=== PATIENT | male | born 1970 | race Hispanic/Latino ===

== ENCOUNTER 2020-07-06 11:05 | Inpatient (IN) | payer SELFPAY ==
[~2020-07-06] VITALS: Ht 165.1 cm; Wt 90.7 kg
[2020-07-06] MEDS ORDERED: SODIUM CHLORIDE 0.9% 1000ML 1,000 ML IV STA (11:35)
[2020-07-06] MEDS ORDERED: MORPHINE SULFATE INJ 2 MG/ML SYR IV NR (11:45)
[2020-07-06] MEDS ORDERED: ONDANSETRON HCL INJ 2MG/ML 2ML 2 MG/ML VIAL IV NR (11:45)
[2020-07-06 11:48] LABS: BASOPHILS % 0.2 % (0.0-1.0); EOSINOPHILS % 0.1 % (0.0-6.0); HEMATOCRIT 49.3 % (38.2-49.6); HEMOGLOBIN 17.1 g/dL (14.0-18.0); LYMPHOCYTES # (AUTO) 1.8 (1.0-3.2); LYMPHOCYTES % 11.2 % (18.0-39.1); MEAN CORPUSCULAR HEMOGLOBIN 31.2 pg (28-32); MEAN CORPUSCULAR HGB CONC 34.7 g/dL (31-35); MONOCYTES # (AUTO) 1.8 (0.2-0.8); MONOCYTES % 11.2 % (4.4-11.3); NEUTROPHILS # (AUTO) 12.3 (2.1-6.9); NEUTROPHILS % 76.7 % (38.7-80.0); PLATELET COUNT 205 x10e3/uL (140-360); RED BLOOD COUNT 5.48 x10e6/uL (4.3-5.7); RED CELL DISTRIBUTION WIDTH 12.6 % (11.7-14.4)
[2020-07-06] MEDS ORDERED: DIATRIZOATE MEGL/DIATRIZOA SOD 30 ML BTL PO ONE (11:51)
[2020-07-06 12:00] LABS: PARTIAL THROMBOPLASTIN TIME 25.7 seconds (23.8-35.5)
[2020-07-06 12:03] LABS: ALANINE AMINOTRANSFERASE 15 IU/L (0-55); ALBUMIN/GLOBULIN RATIO 1.1 (0.8-2.0); ALKALINE PHOSPHATASE 63 IU/L (40-150); BLOOD UREA NITROGEN 13 mg/dL (7-26); BUN/CREATININE RATIO 16 (6-25); CARBON DIOXIDE 22 mmol/L (22-29); CHLORIDE 102 mmol/L (98-107); CREATINE KINASE 71 IU/L (30-200); CREATININE, SERUM 0.83 mg/dL (0.72-1.25); EST GLOMERULAR FILTRATION RATE > 60 ML/MIN (60-); GLUCOSE 153 mg/dL (74-118); LIPASE 9 U/L (8-78); MAGNESIUM 1.9 MG/DL (1.3-2.1); SODIUM 135 mmol/L (136-145)
[2020-07-06 12:12] LABS: INR 1.04; PROTHROMBIN TIME 14.3 seconds (11.9-14.5)
[2020-07-06] MEDS ORDERED: ROCURONIUM BROMIDE 10 MG/ML 5ML VIAL IV ONE (12:14)
[2020-07-06] MEDS ORDERED: DEXAMETHASONE SOD PHOS INJ 4 MG/ML VIAL ONE (12:14)
[2020-07-06] MEDS ORDERED: LIDOCAINE HCL 2% LOCAL INJ 5 ML SDV VIAL INJ ONE (12:14)
[2020-07-06] MEDS ORDERED: GLYCOPYRROLATE INJ 0.2 MG/ML VIAL ONE (12:14)
[2020-07-06] MEDS ORDERED: CEFTRIAXONE SOD 1 GM VIAL ONE (12:14)
[2020-07-06] MEDS ORDERED: SEVOFLURANE INHAL SOLN 250 ML PEN BTL ONE (12:14)
[2020-07-06] MEDS ORDERED: NEOSTIGMINE 1 MG/ML 10ML VIAL ONE (12:14)
[2020-07-06] MEDS ORDERED: PROPOFOL IV EMULSION 10 MG/ML 20 ML VIAL ONE (12:14)
[2020-07-06] MEDS ORDERED: MIDAZOLAM HCL 2 MG/2 ML VIAL ONE (12:26)
[2020-07-06] MEDS ORDERED: FENTANYL CITRATE/PF 100MCG/2 ML INJ ONE ×2 (12:26→18:49)
[2020-07-06] MEDS ORDERED: IOPAMIDOL 370 MG/ML 200 ML INFUS..BTL INJ ONE (12:56)
[2020-07-06] MEDS ORDERED: SODIUM CHLORIDE 0.9% 50ML 50 ML ONE (12:56)
[2020-07-06] MEDS ORDERED: PIPER-TAZ 3.375 GM 50 ML IV SCH (13:15)
[2020-07-06] MEDS ORDERED: IBUPROFEN 800 MG/8 ML VIAL IV NR (13:45)
[2020-07-06] MEDS ORDERED: SODIUM CHLORIDE 0.9% 1000ML 1,000 ML IV SCH (14:30)
[2020-07-06] MEDS ORDERED: ONDANSETRON HCL INJ 2MG/ML 2ML 2 MG/ML VIAL IV PRN ×2 (14:30→18:30)
[2020-07-06] MEDS ORDERED: MORPHINE SULFATE INJ 2 MG/ML SYR IV PRN (14:30)
[2020-07-06] MEDS: SODIUM CHLORIDE 0.9% 1000ML 1,000 ML IV SCH ×3 (14:30→21:45)
[2020-07-06 15:15] LABS: CLARITY,URINE CLEAR (CLEAR); COLOR,URINE YELLOW (YELLOW); KETONES,URINE NEGATIVE (NEGATIVE); LEUKOCYTE ESTERASE ,URINE NEGATIVE (NEGATIVE); NITRITE,URINE NEGATIVE (NEGATIVE); PROTEIN,URINE DIPSTICK 1+ (NEGATIVE); URINE UROBILINOGEN 0.2 mg/dL (0.2 - 1)
[2020-07-06 15:27] LABS: BACTERIA,URINE RARE /HPF; EPITHELIAL CELLS,URINE RARE /LPF; RBC,URINE 0-5 /HPF (0-5); WBC,URINE (MAN) 0-5 /HPF (0-5)
[2020-07-06] MEDS ORDERED: BUPIVACAINE 0.25%/EPI 30ML SDV INJ ONE (15:48)
[2020-07-06 16:00] VITALS: BP 113/86
[2020-07-06] MEDS ORDERED: ACETAMINOPHEN 1000 MG/100 ML 100 ML IV ONE (17:01)
[2020-07-06] MEDS ORDERED: METRONIDAZOLE 500MG/NS 100ML 200 ML IV ONE (17:01)
[2020-07-06] MEDS ORDERED: HYDROGEN PEROXIDE 120 ML BTL ONE (18:08)
[2020-07-06] MEDS ORDERED: ACETAMINOPHEN 1000 MG/100 ML IV PRN (18:45)
[2020-07-06] MEDS: PANTOPRAZOLE 40 MG 10ML VIAL IV SCH (19:24)
[2020-07-06] MEDS: CEFTRIAXONE SOD 1 GM/NS 50 ML 50 ML IV SCH (19:24)
[2020-07-06] MEDS: DEXTROSE 5%/LACTATED RINGERS 1,000 ML IV SCH (19:24)
[2020-07-06 20:00] VITALS: BP 125/82
[2020-07-06 21:29] VITALS: BP 125/82
[2020-07-06] MEDS: PIPER-TAZ 3.375 GM 50 ML IV SCH (23:05)
[2020-07-06] MEDS: METRONIDAZOLE 500MG/NS 100ML 100 ML IV SCH (23:40)
[2020-07-07] VITALS (10 sets, daily range): BP systolic 126–143; BP diastolic 84–109
[2020-07-07] MEDS: SODIUM CHLORIDE 0.9% 1000ML 1,000 ML IV SCH ×3 (01:28→09:39)
[2020-07-07] MEDS: PIPER-TAZ 3.375 GM 50 ML IV SCH ×4 (05:09→23:35)
[2020-07-07] MEDS: DEXTROSE 5%/LACTATED RINGERS 1,000 ML IV SCH ×3 (05:09→17:31)
[2020-07-07 05:41] LABS: BASOPHILS % 0.1 % (0.0-1.0); HEMATOCRIT 43.6 % (38.2-49.6); HEMOGLOBIN 14.8 g/dL (14.0-18.0); LYMPHOCYTES # (AUTO) 1.1 (1.0-3.2); LYMPHOCYTES % 7.6 % (18.0-39.1); MEAN CORPUSCULAR HEMOGLOBIN 31.4 pg (28-32); MEAN CORPUSCULAR HGB CONC 33.9 g/dL (31-35); MEAN CORPUSCULAR VOLUME 92.6 fL (81-99); MONOCYTES # (AUTO) 1.3 (0.2-0.8); NEUTROPHILS # (AUTO) 11.9 (2.1-6.9); NEUTROPHILS % 82.8 % (38.7-80.0); PLATELET COUNT 170 x10e3/uL (140-360); RED BLOOD COUNT 4.71 x10e6/uL (4.3-5.7); RED CELL DISTRIBUTION WIDTH 12.6 % (11.7-14.4)
[2020-07-07] MEDS: METRONIDAZOLE 500MG/NS 100ML 100 ML IV SCH ×3 (05:56→17:18)
[2020-07-07 06:03] LABS: ALANINE AMINOTRANSFERASE 13 IU/L (0-55); ALBUMIN/GLOBULIN RATIO 0.9 (0.8-2.0); ALKALINE PHOSPHATASE 44 IU/L (40-150); ANION GAP 10.6 mmol/L (8-16); BLOOD UREA NITROGEN 12 mg/dL (7-26); BUN/CREATININE RATIO 16 (6-25); CALCIUM 8.2 mg/dL (8.4-10.2); CARBON DIOXIDE 24 mmol/L (22-29); CHLORIDE 106 mmol/L (98-107); CREATININE, SERUM 0.74 mg/dL (0.72-1.25); EST GLOMERULAR FILTRATION RATE > 60 ML/MIN (60-); GLUCOSE 150 mg/dL (74-118); POTASSIUM 3.6 mmol/L (3.5-5.1); SODIUM 137 mmol/L (136-145)
[2020-07-07 10:13] LABS: ANION GAP 11.8 mmol/L (8-16); BLOOD UREA NITROGEN 13 mg/dL (7-26); BUN/CREATININE RATIO 19 (6-25); CALCIUM 8.3 mg/dL (8.4-10.2); CARBON DIOXIDE 25 mmol/L (22-29); CHLORIDE 105 mmol/L (98-107); EST GLOMERULAR FILTRATION RATE > 60 ML/MIN (60-); GLUCOSE 125 mg/dL (74-118); POTASSIUM 3.8 mmol/L (3.5-5.1); SODIUM 138 mmol/L (136-145)
[2020-07-07] MEDS: PANTOPRAZOLE 40 MG 10ML VIAL IV SCH (18:04)
[2020-07-07] MEDS: CEFTRIAXONE SOD 1 GM/NS 50 ML 50 ML IV SCH (19:08)
[2020-07-07] MEDS: HYDROMORPHONE 1MG/1ML INJ IV PRN (19:09)
[2020-07-08] VITALS (8 sets, daily range): BP systolic 127–143; BP diastolic 88–106
[2020-07-08] MEDS: METRONIDAZOLE 500MG/NS 100ML 100 ML IV SCH ×4 (00:10→17:13)
[2020-07-08] MEDS: DEXTROSE 5%/LACTATED RINGERS 1,000 ML IV SCH ×2 (06:02→10:30)
[2020-07-08] MEDS: PIPER-TAZ 3.375 GM 50 ML IV SCH ×4 (06:02→23:15)
[2020-07-08 06:54] LABS: ANION GAP 12.6 mmol/L (8-16); BLOOD UREA NITROGEN 18 mg/dL (7-26); BUN/CREATININE RATIO 24 (6-25); CALCIUM 8.7 mg/dL (8.4-10.2); CARBON DIOXIDE 24 mmol/L (22-29); CHLORIDE 103 mmol/L (98-107); CREATININE, SERUM 0.74 mg/dL (0.72-1.25); EST GLOMERULAR FILTRATION RATE > 60 ML/MIN (60-); GLUCOSE 136 mg/dL (74-118); POTASSIUM 3.6 mmol/L (3.5-5.1); SODIUM 136 mmol/L (136-145)
[2020-07-08] MEDS ORDERED: D5.45%NS/KCL 20MEQ 1,000 ML IV SCH (16:00)
[2020-07-08] MEDS ORDERED: ACETAMINOPHEN 1000 MG/100 ML IV PRN (16:15)
[2020-07-08] MEDS: PANTOPRAZOLE 40 MG 10ML VIAL IV SCH (17:13)
[2020-07-08] MEDS: CEFTRIAXONE SOD 1 GM/NS 50 ML 50 ML IV SCH (18:54)
[2020-07-09] VITALS (7 sets, daily range): BP systolic 119–143; BP diastolic 83–94
[2020-07-09] MEDS: PIPER-TAZ 3.375 GM 50 ML IV SCH ×3 (05:03→17:17)
[2020-07-09 05:16] LABS: BASOPHILS % 0.3 % (0.0-1.0); EOSINOPHILS # (AUTO) 0.1 (0.0-0.4); EOSINOPHILS % 0.7 % (0.0-6.0); HEMATOCRIT 43.7 % (38.2-49.6); HEMOGLOBIN 14.8 g/dL (14.0-18.0); LYMPHOCYTES # (AUTO) 1.8 (1.0-3.2); LYMPHOCYTES % 14.9 % (18.0-39.1); MEAN CORPUSCULAR HEMOGLOBIN 31.6 pg (28-32); MEAN CORPUSCULAR HGB CONC 33.9 g/dL (31-35); MEAN CORPUSCULAR VOLUME 93.4 fL (81-99); MONOCYTES # (AUTO) 1.1 (0.2-0.8); MONOCYTES % 9.1 % (4.4-11.3); NEUTROPHILS # (AUTO) 8.9 (2.1-6.9); NEUTROPHILS % 74.5 % (38.7-80.0); PLATELET COUNT 217 x10e3/uL (140-360); RED BLOOD COUNT 4.68 x10e6/uL (4.3-5.7); RED CELL DISTRIBUTION WIDTH 12.8 % (11.7-14.4)
[2020-07-09 05:49] LABS: ANION GAP 10.5 mmol/L (8-16); BLOOD UREA NITROGEN 18 mg/dL (7-26); BUN/CREATININE RATIO 26 (6-25); CALCIUM 8.2 mg/dL (8.4-10.2); CARBON DIOXIDE 25 mmol/L (22-29); CHLORIDE 105 mmol/L (98-107); CREATININE, SERUM 0.69 mg/dL (0.72-1.25); EST GLOMERULAR FILTRATION RATE > 60 ML/MIN (60-); GLUCOSE 124 mg/dL (74-118); POTASSIUM 3.5 mmol/L (3.5-5.1); SODIUM 137 mmol/L (136-145)
[2020-07-09] MEDS: METRONIDAZOLE 500MG/NS 100ML 100 ML IV SCH ×4 (06:17→18:32)
[2020-07-09] MEDS: PANTOPRAZOLE 40 MG 10ML VIAL IV SCH (18:33)
[2020-07-09] MEDS: CEFTRIAXONE SOD 1 GM/NS 50 ML 50 ML IV SCH (18:34)
[2020-07-09] MEDS ORDERED: SODIUM CHLORIDE 0.9% 250ML 250 ML ONE (19:45)
[2020-07-10] VITALS: BP 134/99
[2020-07-10] MEDS: PIPER-TAZ 3.375 GM 50 ML IV SCH ×3 (00:57→12:31)
[2020-07-10 04:00] VITALS: BP 121/90
[2020-07-10] MEDS: METRONIDAZOLE 500MG/NS 100ML 100 ML IV SCH ×3 (05:45→12:31)
[2020-07-10 05:46] LABS: BASOPHILS # (AUTO) 0.1 (0.0-0.1); BASOPHILS % 0.5 % (0.0-1.0); EOSINOPHILS # (AUTO) 0.2 (0.0-0.4); EOSINOPHILS % 1.7 % (0.0-6.0); HEMATOCRIT 43.7 % (38.2-49.6); HEMOGLOBIN 14.8 g/dL (14.0-18.0); LYMPHOCYTES # (AUTO) 1.6 (1.0-3.2); LYMPHOCYTES % 16.3 % (18.0-39.1); MEAN CORPUSCULAR HEMOGLOBIN 31.4 pg (28-32); MEAN CORPUSCULAR HGB CONC 33.9 g/dL (31-35); MEAN CORPUSCULAR VOLUME 92.8 fL (81-99); MONOCYTES # (AUTO) 1.1 (0.2-0.8); MONOCYTES % 10.6 % (4.4-11.3); NEUTROPHILS # (AUTO) 7.1 (2.1-6.9); NEUTROPHILS % 70.3 % (38.7-80.0); PLATELET COUNT 231 x10e3/uL (140-360); RED BLOOD COUNT 4.71 x10e6/uL (4.3-5.7); RED CELL DISTRIBUTION WIDTH 12.4 % (11.7-14.4)
[2020-07-10 08:00] VITALS: BP 123/93
[2020-07-10 08:14] VITALS: BP 123/93
[2020-07-10 12:32] VITALS: BP 115/90
[2020-07-10] MEDS: HYDROMORPHONE 1MG/1ML INJ IV PRN (13:53)
[2020-07-10 16:32] VITALS: BP 117/92
== END 2020-07-10 18:30 | disposition home or self-care (01) | DRG 338 ==
LOC: ER 11:19 → ERHOLD 14:30 → MED/SURG 15:57 → OBSVTOIN 07-07 10:34
PROVIDERS: ADMIT Surgery; ATTEND Surgery
PROC: 0W9G3ZZ Drainage of Peritoneal Cavity, Percutaneous Approach (ICD-10-PCS; 2020-07-06)
PROC: 0DTJ4ZZ Resection of Appendix, Percutaneous Endoscopic Approach (ICD-10-PCS; principal; 2020-07-06 16:00)
DX: K35.33 Acute appendicitis with perforation, localized peritonitis, and gangrene, with abscess (principal); K68.19 Other retroperitoneal abscess; Z20.822 Contact with and (suspected) exposure to COVID-19
CPT/HCPCS: 36415; 71045; 74177; 80048; 80053; 81001; 82550; 82553; 83605; 83690; 83735; 84484; 85025; 85610; 85730; 87040; 87086; 88304; 93005; 99284; C1766; G0378; J0696; J1100; J1170; J2001; J2250; J2270; J2405; J2543; J2710; J3010; J7030; J7050; Q9967; U0002